=== PATIENT | female | born 1995 | race Two or more races ===

== ENCOUNTER 2022-10-19 05:23 | Emergency (ER) | payer OTHER ==
[~2022-10-19] VITALS: Ht 165.1 cm; Wt 178.9 kg
[2022-10-19 07:14] VITALS: BP 141/88
[2022-10-19] MEDS ORDERED: IPRATROPIUM BROM 0.5 MG/2.5ML INH SOL NEB ONE (07:30)
[2022-10-19] MEDS ORDERED: ALBUTEROL SULF 2.5 MG/0.5ML(0.5%) NEB SOLN NEB ONE (07:30)
[2022-10-19] MEDS ORDERED: AZIT500T66 PO (07:52)
[2022-10-19] MEDS ORDERED: PROM1SOL4 PO (07:52)
[2022-10-19] MEDS ORDERED: ALBU108A5 IN (07:52)
== END 2022-10-19 08:00 | disposition home or self-care (01) ==
LOC: ER 05:23
DX: J20.9 Acute bronchitis, unspecified (principal); R07.89 Other chest pain
CPT/HCPCS: 71046; 94640; 99283; J7644